=== PATIENT | female | born 2000 | race Two or more races ===

== ENCOUNTER → 2025-02-04 | Outpatient (CLI) | payer BC, SELFPAY ==
[2025-02-04 14:28] LABS: HIV (1&2) Antibody Rapid Non-Reactive
[2025-02-04 14:31] LABS: Syphilis Reactive (Nonreactive)
[2025-02-04 14:32] LABS: MHATP/TP-PA* See Sep Rpt
[2025-02-04 14:42] LABS: Hepatitis A Antibody IgM Non Reactive (Non React); Hepatitis B Core Antibody IgM Non Reactive (Non React); Hepatitis B Surface Antigen Non Reactive (Non React); Hepatitis C Antibody Non Reactive (Non React)
== END | disposition home or self-care (01) ==
PROVIDERS: PCP Nurse Practitioner Family; Referring Provider Nurse Practitioner Family; Visit Provider Nurse Practitioner Family
DX: Z11.3 Encounter for screening for infections with a predominantly sexual mode of transmission (principal)
CPT/HCPCS: 36415; 80074; 86703; 86780